=== PATIENT | female | born 1995 ===

== ENCOUNTER 2018-02-04 17:20 | Observation (INO) | payer SELFPAY ==
[2018-02-04] MEDS ORDERED: Sodium Chloride 0.9% 10 ML Syringe FLUSH PRN (17:30)
[2018-02-04] MEDS ORDERED: Sodium Chloride 0.9% 2.5 ML Syringe FLUSH PRN (17:30)
[2018-02-04] MEDS ORDERED: Sodium Chloride 0.9% 1,000 ML IV ONE (17:32)
[2018-02-04] MEDS ORDERED: Morphine 2 MG/ML Syringe IVPUSH ONE (17:32)
[2018-02-04] MEDS ORDERED: Ondansetron 4 MG/2 ML SDV IVPUSH ONE (17:32)
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
[2018-02-04] MEDS ORDERED: Lidocaine 1% 20 ML MDV INJECT ONE (17:40)
[2018-02-04] MEDS ORDERED: Bupivacaine 0.5% 10 ML SDV INJECT ONE (17:40)
[2018-02-04] MEDS ORDERED: Lidocaine 1% with EPINEPHrine 1:100,000 20 ML MDV ONE (17:45)
[2018-02-04] MEDS ORDERED: Morphine 2 MG/ML Syringe ONE (17:55)
[2018-02-04 18:36] LABS: CHLORIDE,CL 107 mmol/L (98-107); SODIUM,NA 143 mmol/L (136-145)
--- NOTE | 2018-02-04 20:09 | PCM.PREANE ---
Preanesthetic Assessment - Anesthesia/Transfusion/Family Hx Anesthesia History: No Prior Anesthesia Family History of Anesthesia Reaction: No Transfusion History: No Prior Transfusion(s) - Review of Systems General: No Symptoms Pulmonary: No Symptoms Cardiovascular: No Symptoms Gastrointestinal: No Symptoms Neurological: No Symptoms Other: Reports: None - Physical Assessment Height: 5 ft 4 in Weight: 52.163 kg ASA Class: 1E Mental Status: Alert & Oriented x3 Airway Class: Mallampati = 2 Dentition: Reports: Normal Dentition Thyro-Mental Finger Breadths: 3 Mouth Opening Finger Breadths: 3 ROM/Head Extension: Full Lungs: Clear to Auscultation, Normal Respiratory Effort Cardiovascular: Regular Rate, Regular Rhythm - Lab Values: Laboratory Last Values WBC 10.91 K/uL (4.0-11.0) 02/04/18 17:43 RBC 4.34 M/uL (4.30-5.90) 02/04/18 17:43 Hgb 12.0 g/dL (12.0-16.0) 02/04/18 17:43 Hct 35.7 % (36.0-46.0) L 02/04/18 17:43 MCV 82.3 fL (80.0-98.0) 02/04/18 17:43 MCH 27.6 pg (27.0-32.0) 02/04/18 17:43 MCHC 33.6 g/dL (31.0-37.0) 02/04/18 17:43 RDW Std Deviation 42.7 fl (28.0-62.0) 02/04/18 17:43 RDW Coeff of Cherie 14 % (11.0-15.0) 02/04/18 17:43 Plt Count 316 K/uL (150-400) 02/04/18 17:43 MPV 9.90 fL (7.40-12.00) 02/04/18 17:43 Neut % (Auto) 68.2 % (48.0-80.0) 02/04/18 17:43 Lymph % (Auto) 23.3 % (16.0-40.0) 02/04/18 17:43 [place] % (Auto) 6.6 % (0.0-15.0) 02/04/18 17:43 Eos % (Auto) 1.6 % (0.0-7.0) 02/04/18 17:43 Baso % (Auto) 0.3 % (0.0-1.5) 02/04/18 17:43 Neut # (Auto) 7.4 K/uL (1.4-5.7) H 02/04/18 17:43 Lymph # (Auto) 2.5 K/uL (0.6-2.4) H 02/04/18 17:43 [place] # (Auto) 0.7 K/uL (0.0-0.8) 02/04/18 17:43 Eos # (Auto) 0.2 K/uL (0.0-0.7) 02/04/18 17:43 Baso # (Auto) 0.0 K/uL (0.0-0.1) 02/04/18 17:43 Nucleated RBC % 0.0 /100WBC 02/04/18 17:43 Nucleated RBCs # 0 K/uL 02/04/18 17:43 Sodium 143 mmol/L (136-145) 02/04/18 17:43 Potassium 2.7 mmol/L (3.5-5.1) L 02/04/18 17:43 Chloride 107 mmol/L (98-107) 02/04/18 17:43 Carbon Dioxide 24.1 mmol/L (21.0-32.0) 02/04/18 17:43 BUN 7 mg/dL (7.0-18.0) 02/04/18 17:43 Creatinine 0.5 mg/dL (0.6-1.0) L 02/04/18 17:43 Est Cr Clr Drug Dosing 144.10 mL/min 02/04/18 17:43 Estimated GFR (MDRD) > 60.0 ml/min 02/04/18 17:43 Glucose 81 mg/dL (74-106) 02/04/18 17:43 Calcium 8.6 mg/dL (8.5-10.1) 02/04/18 17:43 Total Bilirubin 0.2 mg/dL (0.2-1.0) 02/04/18 17:43 AST 14 IU/L (15-37) L 02/04/18 17:43 ALT 28 IU/L (14-63) 02/04/18 17:43 Alkaline Phosphatase 82 U/L (46-116) 02/04/18 17:43 Total Protein 7.7 g/dL (6.4-8.2) 02/04/18 17:43 Albumin 3.3 g/dL (3.4-5.0) L 02/04/18 17:43 Globulin 4.4 g/dL (2.0-3.5) H 02/04/18 17:43 Albumin/Globulin Ratio 0.8 (1.3-2.8) L 02/04/18 17:43 Lipase 163 U/L (73-393) 02/04/18 17:43 HCG, Qual POSITIVE (NEG) H 02/04/18 17:43 HCG, Quant 43406.0 mIU/mL 02/04/18 17:43 Ethyl Alcohol 88 mg/dL 02/04/18 17:43 - Allergies Allergies/Adverse Reactions: Allergies Allergy/AdvReac Type Severity Reaction Status Date / Time No Known Allergies Allergy Verified 02/04/18 17:26 - Anesthesia Plan Free Text/Narrative:: RSI, hypokalema, 20mEq replacement ordered and running pre-op - Acknowledgements Anesthesia Type Planned: General Anesthesia Pt an Appropriate Candidate for the Planned Anesthesia: Yes Alternatives and Risks of Anesthesia Discussed w Pt/Guardian: Yes Pt/Guardian Understands and Agrees with Anesthesia Plan: Yes PreAnesthesia Questionnaire HEENT History: Reports: None Cardiovascular History: Reports: None Respiratory History: Reports: None Gastrointestinal History: Reports: None Genitourinary History: Reports: None 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 Para: 0 LMP (Approximate): Musculoskeletal History: Reports: Other (See Below) (Rt Elbow dislocation) Neurological History: Reports: None Psychiatric History: Reports: None Endocrine/Metabolic History: Reports: None Hematologic History: Reports: None Immunologic History: Reports: None Oncologic (Cancer) History: Reports: None Dermatologic History: Reports: None - Infectious Disease History Infectious Disease History: Reports: None - HOME MEDS Home Medications: Home Meds ALPRAZolam [Xanax] 2 tab PO QAM 02/04/18 [History] - CURRENT (IN HOUSE) MEDS Current Meds: Current Medications Potassium Chloride/Sodium Chloride (Normal Saline With 20 Meq Kcl) 1,000 mls @ 125 mls/hr IV ASDIRECTED GARY Lactated Ringer's (Ringers, Lactated) 1,000 mls @ 100 mls/hr IV ASDIRECTED GARY Sodium Chloride (Saline Flush) 10 ml FLUSH ASDIRECTED PRN PRN Reason: Keep Vein Open Sodium Chloride (Saline Flush) 2.5 ml FLUSH ASDIRECTED PRN PRN Reason: Keep Vein Open Discontinued Medications Bupivacaine HCl (Sensorcaine-Mpf 0.5%) 10 ml INJECT ONETIME ONE Stop: 02/04/18 17:41 Sodium Chloride (Normal Saline) 1,000 mls @ 999 mls/hr IV .Bolus ONE Stop: 02/04/18 18:32 Last Admin: 02/04/18 17:49 Dose: 999 mls/hr Lidocaine HCl (Xylocaine 1%) 20 ml INJECT ONETIME ONE Stop: 02/04/18 17:41 Lidocaine/Epinephrine (Xylocaine 1% With Epinephrine 1:100,000) Confirm Administered Dose 20 ml .ROUTE .STK-MED ONE Stop: 02/04/18 17:46 Morphine Sulfate (Morphine) 4 mg IVPUSH ONETIME ONE Stop: 02/04/18 17:33 Last Admin: 02/04/18 17:51 Dose: 4 mg Morphine Sulfate (Morphine) Confirm Administered Dose 2 mg .ROUTE .STK-MED ONE Stop: 02/04/18 17:56 Last Admin: 02/04/18 18:29 Dose: Not Given Ondansetron HCl (Zofran) 4 mg IVPUSH ONETIME ONE Stop: 02/04/18 17:33 Last Admin: 02/04/18 17:49 Dose: 4 mg
[2018-02-04] MEDS: Lactated Ringers 1,000 ML IV SCH ×2 (20:10→22:48)
[2018-02-04] MEDS ORDERED: NS + KCl 20mEq/L 1,000 ML IV SCH (20:15)
[2018-02-04] MEDS ORDERED: Succinylcholine 200 MG/10 ML MDV ONE (20:19)
[2018-02-04] MEDS ORDERED: Rocuronium 10 MG/ML 10 ML Syringe ONE (20:19)
[2018-02-04] MEDS ORDERED: Lidocaine 2% 5 ML SDV ONE (20:19)
[2018-02-04] MEDS ORDERED: Ondansetron 4 MG/2 ML SDV ONE (20:19)
[2018-02-04] MEDS ORDERED: Propofol 200 MG/20 ML SDV ONE (20:21)
[2018-02-04] MEDS ORDERED: fentaNYL 100 MCG/2 ML SDV ONE ×2 (20:21→21:57)
[2018-02-04] MEDS ORDERED: KCL IV SCH (20:30)
[2018-02-04] MEDS ORDERED: NS IV SCH (20:30)
--- NOTE | 2018-02-04 21:36 | PCM.POSTAN ---
POST ANESTHESIA ASSESSMENT - MENTAL STATUS Mental Status: Alert, Oriented - VITAL SIGNS Pulse Rate: 90 SaO2: 98 Resp Rate: 20 - RESPIRATORY Respiratory Status: Respiratory Rate WNL, Airway Patent, O2 Saturation Stable - CARDIOVASCULAR CV Status: Pulse Rate WNL, Blood Pressure Stable - GASTROINTESTINAL GI Status: No Symptoms - POST OP HYDRATION Hydration Status: Adequate & Stable - OBSERVATIONS Free Text/Narrative:: OB RN was at the bedside post-procedure to evaluate FHR, 160's per Janessa GILLIAM.
[2018-02-04] MEDS ORDERED: fentaNYL 100 MCG/2 ML SDV IVPUSH PRN (21:55)
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
[2018-02-04] MEDS ORDERED: Lactated Ringers 1,000 ML IV SCH (23:15)
[2018-02-04] MEDS: Acetaminophen/oxyCODONE 325-5 MG Tab PO PRN (23:29)
[2018-02-04] MEDS: Nicotine 14 MG/24 Hr Patch TRDERM SCH (23:30)
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
[2018-02-05 05:49] LABS: CHLORIDE,CL 105 mmol/L (98-107); SODIUM,NA 137 mmol/L (136-145)
[2018-02-05] MEDS: Lactated Ringers 1,000 ML IV SCH (07:09)
[2018-02-05] MEDS: Acetaminophen/oxyCODONE 325-5 MG Tab PO PRN (08:06)
[2018-02-05] MEDS: Nicotine 14 MG/24 Hr Patch TRDERM SCH (08:07)
--- NOTE | 2018-02-05 09:46 | PN ---
SUBJECTIVE: The patient reports overall she is doing better this morning. She has less pain in the elbow/arm. She was able to sleep. She denies any new numbness involving the hand. She does have some generalized feeling of numbness and tingling occasionally, which is not localized specifically to any particular distribution. She has been up and walking. She denies any additional areas of pain involving any of her extremities. OBJECTIVE: The splint is in place. This is clean and dry. She has brisk capillary refill to the fingers. She is able to identify light touch in the median, radial, and ulnar nerve distributions. She is able to flex the fingers. She can flex the thumb including the IP joint. She can make an okay sign. She has some weakness on extending her fingers. This may be secondary to discomfort, although she does this to some extent. She is able to clearly but weakly extend the thumb at the IP joint. She can weakly abduct and adduct the fingers. ASSESSMENT: Status post reduction of a radial head/elbow dislocation. PLAN: Postreduction fluoroscopy from the OR showed stable and concentric reduction. The radiologist made mention on the initial x-rays of a possible intercondylar humerus fracture. I did not see this on additional x-rays or in the fluoroscopic views. She is in a splint currently and I would like to avoid excessive radiation given the fact that she is . We will defer additional x-rays at this time. I am planning on having her come back to clinic later this week where AP and lateral views of the elbow will again be obtained to ensure continued stable reduction as well as no additional fractures. At this time, I anticipate about 2 to 3 weeks of immobilization for this injury followed by gradual progression of her range of motion and strengthening. She is cleared to discharge from an orthopedic perspective, and she will be contacted early this week regarding followup. She needs to keep the splint clean and dry and should cover up for any showers. AKILAH JONES /[id number]
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
[2018-02-05] MEDS ORDERED: Potassium Chloride 20 MEQ Tab.ER PO ONE (09:57)
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
[2018-02-05] MEDS ORDERED: Silver Sulfadiazine 1% Crm 50 GM Tube TOP ONE (12:33)
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
--- NOTE | 2018-02-06 10:31 | CR ---
EXAMINATION: Right elbow HISTORY: Reduction COMPARISON: 02/04/2018 TECHNIQUE: 3 views FINDINGS/IMPRESSION: Post reduction films demonstrate the radiocapitellar alignment and good position and alignment. No definite fracture or acute osseous abnormality.
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
== END 2018-02-05 13:22 | disposition home or self-care (01) ==
LOC: MW.ED 17:20 → MW.SDS 19:58 → MW.MS 22:58
PROVIDERS: ADMIT Surgery; ATTEND Surgery
DX: O26.891 Other specified pregnancy related conditions, first trimester (principal); S53.004A Unspecified dislocation of right radial head, initial encounter; O99.331 Smoking (tobacco) complicating pregnancy, first trimester; F17.210 Nicotine dependence, cigarettes, uncomplicated; O99.341 Other mental disorders complicating pregnancy, first trimester; F41.9 Anxiety disorder, unspecified; Z3A.12 12 weeks gestation of pregnancy; V49.9XXA Car occupant (driver) (passenger) injured in unspecified traffic accident, initial encounter; Z79.899 Other long term (current) drug therapy
CPT/HCPCS: 24605; 36415; 70450; 72125; 73070; 73090; 73100; 76000; 76815; 80048; 80053; 80305; 81003; 83690; 84702; 84703; 85025; 86850; 86900; 86901; 96361; 96374; 96375; 99285; A9270; G0378; G0480; J0330; J2270; J2405; J2704; J3010; J7040; J7120; 99284